=== PATIENT | male | born 1970 | race Caucasian/White ===

== ENCOUNTER 2020-09-29 07:33 | Outpatient (REF) | payer BC, SELFPAY ==
[2020-09-29 10:20] LABS: MANUAL DIFF FLAG NO
[2020-09-29 10:24] LABS: Basophils Percent Auto 0.4 % (0-2); Eosinophils Absolute Auto 0.1 X10*3/uL (0.0-0.4); Eosinophils Percent Auto 2.8 % (0-4); Hemoglobin 15.4 g/dl (14.0-18.0); Imm Gran Abs Auto 0.01 X10*3/uL (0.00-0.03); Imm Gran Pct Auto 0.2 % (0.0-0.4); Lymphocytes Absolute Auto 1.6 X10*3/uL (1.2-4.9); Lymphocytes Percent Auto 32.6 % (20-40); Mean Corpuscular HGB Conc 34.2 g/dl (31.0-36.0); Mean Corpuscular Hemoglobin 29.3 pg (27.0-33.0); Mean Corpuscular Volume 85.7 fL (80-98); Mean Platelet Volume 9.2 fL (9.4-12.4); Monocytes Absolute Auto 0.5 X10*3/uL (0.1-1.2); Monocytes Percent Auto 9.5 % (2-11); Neutrophils Absolute Auto 2.7 X10*3/uL (2.0-8.3); Neutrophils Percent Auto 54.5 % (45-73); Platelet Count 265 X10*3/uL (160-400); Red Blood Count 5.25 X10*6/uL (4.60-5.80); Red Cell Distribution Width 12.8 % (11.0-16.0)
[2020-09-29 10:52] LABS: Alanine Aminotransferase 28 U/L (0-40); Albumin Level 4.6 g/dL (3.5-5.0); Alkaline Phosphatase 88 U/L (39-117); Anion Gap 11 (12-20); Aspartate Amino Transferase 21 U/L (5-37); Bilirubin Total 0.6 mg/dL (0.0-1.0); Blood Urea Nitrogen 26 mg/dL (9-16); C Reactive Protein 0.17 mg/dL (< or = 0.50); Calcium 9.5 mg/dL (8.4-10.2); Carbon Dioxide 29 mmol/L (22-29); Chloride 105 mmol/L (96-108); Cholesterol 218 mg/dL; Estimated Glomerular Filt Rate > 60; Glucose Fasting 98 mg/dL (60-99); HDL Cholesterol 49 mg/dL; LDL Cholesterol Calculated 148 mg/dl; Potassium 4.5 mmol/L (3.3-5.1); Sodium 140 mmol/L (135-145); Total Protein 7.1 g/dL (6.5-8.0); Triglycerides 107 mg/dL
== END 2020-09-29 07:34 | disposition home or self-care (01) ==
LOC: HO.10HDL 07:33
PROVIDERS: Visit Provider Internal Medicine
DX: Z00.00 Encounter for general adult medical examination without abnormal findings (principal); H93.19 Tinnitus, unspecified ear
CPT/HCPCS: 36415; 80053; 80061; 85025; 86140

== ENCOUNTER 2020-10-06 08:30 | Outpatient (REF) | payer BC, SELFPAY ==
--- NOTE | 2020-10-06 12:54 | MHC.AU.ANR ---
Adult Audiological Evaluation Date of Visit: 10/06/20 Reason for Appointment: Audiological evaluation due to concern for decreased hearing and tinnitus. Mr. Rockwell states that he began experiencing intermittent tinnitus about 4-6 weeks ago, and since that time it has become constant. He believes the ringing is worse in his left ear. He notes that he's noticed a gradual decrease in his hearing over the past two years and finds himself asking for repetition more frequently, but feels he hears well most of the time. Mr. Rockwell reports that he constantly feels like he needs to pop his ears and has a long history of sinus problems and allergies. Mr. Rockwell notes that he received the second dose of his COVID-19 vaccine on August 04, 2020, which is around the time he started to notice the ringing. Does patient feel they have a hearing loss?: Unsure Has hearing been tested previously?: No Hearing Handicap Inventory: HHIE SCORE: 2 Based on HHIE score, patient has: No perceived hearing handicap Ear History: Family History of Hearing Loss?: Yes: Mother Bothersome Tinnitus/Ringing/Noises in Ears: Both Ears Blocked/Full Sensation in Ear(s): Both Ears History of occupational noise exposure?: Yes: Briefly worked in a factory setting years ago Medical History: Medical History: Headache, Tobacco Use Medical History (Other): Previously used tobacco but quit 20 years ago. Vasectomy 2003, left shoulder surgery 2007, meniscus surgery 2016, appendectomy 1989, Bleb (lung) resection 2001 Allergies: Morphine Medication List: Cetirizine hydrochloride tablets 10 mg, taken seasonally. Otoscopy: Right Ear: Unremarkable Left Ear: Unremarkable Tympanometry: Tympanometry performed due to: Patient reports clicking/popping sensations in ears Right Ear: Normal Middle Ear System (Type A) Left Ear: Reduced Middle Ear Compliance (Type As) Hearing Evaluation: Transducer(s) Used: Insert Earphones, Bone Conduction Method: Conventional Audiometry Stimuli Used: Pure Tones Right Ear: Description of Hearing: Normal hearing from 250-8000 Hz. Left Ear: Description of Hearing: Normal hearing from 250-3000 Hz, sloping to a mild conductive hearing loss at 4000 Hz, rising to normal hearing at 6000 Hz, and sloping to a mild hearing loss at 8000 Hz. Left ear air-conduction thresholds are 10-20 dBHL worse than the right ear from 6272-3958 Hz and 8000 Hz. Air-bone gaps of 10-20 dBHL are present at 250, 1000, 3000, and 4000 Hz. Speech Recognition Threshold (SRT): Method Used: Monitored Live Voice Stimuli Used: Spondee Words Right Ear: 5 dBHL Left Ear: 10 dBHL Word Discrimination: Method: Recorded Lists Word Lists Used: NU-6 Right Ear: 100% at 45 dBHL Left Ear: 92% at 50 dBHL Recommendations: Audiological re-evaluation in one year. Referral to Ear, Nose, and Throat is recommended to address middle-ear dysfunction, asymmetry, conductive hearing loss, and sudden onset of tinnitus. Discussed exacerbating factors of tinnitus and management techniques. Diagnosis: Primary Diagnosis: H90.12 ConductiveHL, Unilateral Left Ear, W/Unrestricted Contralateral Secondary Diagnosis: H93.13 Tinnitus, Bilateral Services Performed: Services Performed: Comprehensive Audiological Evaluation (CPT 07379) Tympanometry (CPT 12890) Signature: Provider: Melvin Fritz, CCC-A
== END 2020-10-06 08:31 | disposition home or self-care (01) ==
LOC: HO.SH 08:30
PROVIDERS: Visit Provider Internal Medicine
DX: H90.12 Conductive hearing loss, unilateral, left ear, with unrestricted hearing on the contralateral side (principal); H93.13 Tinnitus, bilateral
CPT/HCPCS: 92557; 92567

== ENCOUNTER 2021-10-01 06:13 | Outpatient (REF) | payer BC, SELFPAY ==
[2021-10-01 06:26] LABS: MANUAL DIFF FLAG NO
[2021-10-01 07:33] LABS: Basophils Percent Auto 0.5 % (0-2); Eosinophils Absolute Auto 0.1 X10*3/uL (0.0-0.4); Eosinophils Percent Auto 2.1 % (0-4); Hematocrit 46.5 % (42.0-52.0); Hemoglobin 15.9 g/dl (14.0-18.0); Imm Gran Abs Auto 0.02 X10*3/uL (0.00-0.03); Imm Gran Pct Auto 0.3 % (0.0-0.4); Lymphocytes Absolute Auto 1.8 X10*3/uL (1.2-4.9); Lymphocytes Percent Auto 29.8 % (20-40); Mean Corpuscular HGB Conc 34.2 g/dl (31.0-36.0); Mean Corpuscular Hemoglobin 28.9 pg (27.0-33.0); Mean Corpuscular Volume 84.5 fL (80.0-98.0); Mean Platelet Volume 9.1 fL (9.4-12.4); Monocytes Absolute Auto 0.7 X10*3/uL (0.1-1.2); Monocytes Percent Auto 11.2 % (2-11); Neutrophils Absolute Auto 3.4 x10*3/uL (2.0-8.3); Neutrophils Percent Auto 56.1 % (45-73); Platelet Count 252 X10*3/uL (160-400); Red Cell Distribution Width 12.5 % (11.0-16.0); White Blood Count 6.1 X10*3/uL (4.8-10.8)
[2021-10-01 08:08] LABS: Alanine Aminotransferase 30 U/L (0-40); Albumin Level 4.6 g/dL (3.5-5.0); Alkaline Phosphatase 95 U/L (39-117); Anion Gap 12 (12-20); Aspartate Amino Transferase 24 U/L (5-37); Bilirubin Total 0.6 mg/dL (0.0-1.0); Blood Urea Nitrogen 19 mg/dL (9-16); Calcium 9.5 mg/dL (8.4-10.2); Carbon Dioxide 27 mmol/L (22-29); Chloride 104 mmol/L (96-108); Cholesterol 193 mg/dL; Estimated Glomerular Filt Rate > 60; Glucose Fasting 103 mg/dL (60-99); HDL Cholesterol 42 mg/dL; LDL Cholesterol Calculated 128 mg/dl; Potassium 4.4 mmol/L (3.3-5.1); Sodium 139 mmol/L (135-145); Total Protein 7.2 g/dL (6.5-8.0); Triglycerides 116 mg/dL
[2021-10-01 08:31] LABS: Prostate Specific Antigen 0.45 ng/mL (<0.05-4.0)
== END 2021-10-01 06:14 | disposition home or self-care (01) ==
LOC: HO.LAB 06:13
PROVIDERS: PCP Internal Medicine; Visit Provider Internal Medicine
DX: Z00.00 Encounter for general adult medical examination without abnormal findings (principal); Z12.5 Encounter for screening for malignant neoplasm of prostate
CPT/HCPCS: 36415; 80053; 80061; 84153; 85025

== ENCOUNTER 2022-04-08 09:33 | Day surgery (SDC) | payer BC, SELFPAY ==
--- NOTE | 2022-04-07 11:52 | HO.ANESPROP2 ---
Documented by User: Celine Estrada NP 04/07/22 11:54 HPI - Anesthesia Eval Consult details Narrative: 51yo M for Colonoscopy [facility] Past Medical History Medical History GERD (gastroesophageal reflux disease) Pneumothorax Surgical History Surgical History H/O vasectomy History of lung surgery S/P appendectomy S/P right knee arthroscopy Social History Social History Patient Tobacco Use Status: Former Tobacco user Quit Date: 22 years ago Use of substances other than those prescribed or required for medical reasons: No Are you DNR?: No Advance Directives: No Advance Directives Information Provided: Yes Meds Allergies Allergy/AdvReac Type Severity Reaction Status Date / Time cephalexin [From Keflex] Allergy Hives Verified 04/08/22 10:02 morphine Allergy Hives Verified 04/08/22 10:01 Exam Exam Date and Time: April 07, 2022 1152 Pertinent Lab Results Pertinent Lab Results: Laboratory Tests 10/01/21 10/01/21 06:24 06:24 WBC 6.1 Hgb 15.9 Hct 46.5 Plt Count 252 Sodium 139 Potassium 4.4 Chloride 104 Carbon Dioxide 27 BUN 19 H Creatinine 1.26 Assessment and Plan Assessment Anesthesia Assessment: Chart Reviewed Documented by User: Brando Avina MD 04/08/22 10:30 [facility] Past Medical History Medical History GERD (gastroesophageal reflux disease) Pneumothorax Family History Family history of problems with anesthesia: No Surgical History Surgical History H/O vasectomy History of lung surgery S/P appendectomy S/P right knee arthroscopy History of Problems with Anesthesia: No Social History Social History Patient Tobacco Use Status: Former Tobacco user Quit Date: 22 years ago Use of substances other than those prescribed or required for medical reasons: No Are you DNR?: No Advance Directives: No Advance Directives Information Provided: Yes Meds Allergies Allergy/AdvReac Type Severity Reaction Status Date / Time cephalexin [From Keflex] Allergy Hives Verified 04/08/22 10:02 morphine Allergy Hives Verified 04/08/22 10:01 Exam Airway Mallampati Class: II TM Dist: >3cm Neck ROM: Full Loose/Missing/Broken Teeth: No Heart: [id number] Lungs: cta b/l Assessment and Plan Assessment Anesthesia Assessment: Anesthesia Plan Discussed Final Anesthetic Review Family History of Problems with Anesthesia: No History of Problems with Anesthesia: No NPO: Yes ASA Class: II Final Preanesthetic Review: No Changes in Pt Med Stat, Meds/Allgs Chart Reviewed, Consent Obtained/Reviewed and Anes Risks/Benef Reviewed Patient Risk: Intermediate Procedure Risk: Intermediate Assessment/Block/Sedation in SS: Assess/Block/Sedation-SS Anesthetic Plan Anesthetic Plan: MAC: and Agree w/ Assess. and Plan Disposition: Standard PACU
[2022-04-08 09:49] VITALS: BP 135/93; PULSE 74; RESP 18; TEMP 36.3; O2SAT 99
[2022-04-08] MEDS: Lactated Ringers 1,000 ML 100 ML IVCONT (10:18)
[2022-04-08 11:18] VITALS: BP 103/51; PULSE 82; RESP 16; TEMP 36.4; O2SAT 98
--- NOTE | 2022-04-08 11:25 | PM.OP ---
Brief Operative Note Date of Service: 04/08/22 Pre-op diagnosis: Screening Post-op diagnosis: other (Diverticulosis) Procedure: Colonoscopy to the cecum and TI Surgeon: Antonio Orozco Anesthesia: MAC Was an Transmission Maintenance Supervisor used for this Procedure?: No Estimated blood loss (mL): 0 Pathology: none sent Condition: stable Disposition: PACU
[2022-04-08 11:33] VITALS: BP 124/83; PULSE 71; RESP 18; TEMP 36.7; O2SAT 99
--- NOTE | 2022-04-08 13:11 | OP_ITS ---
SURGEON: Antonio Orozco MD INDICATIONS: The patient presents for evaluation of colorectal cancer screening. Full consent has been obtained from him for this, including risks of bleeding and perforation. PREOPERATIVE DIAGNOSIS: Colorectal cancer screening. POSTOPERATIVE DIAGNOSIS: PROCEDURE PERFORMED: Colonoscopy to the cecum and terminal ileum. ESTIMATED BLOOD LOSS: COMPLICATIONS: ANESTHESIA: Monitored anesthesia care. ASSISTANTS: SPECIMENS: POSTOPERATIVE DIAGNOSES: Colorectal cancer screening, occasional sigmoid diverticulosis, internal hemorrhoids. DESCRIPTION OF PROCEDURE: The patient was placed in the left lateral decubitus position. The digital rectal exam revealed no abnormalities. The Olympus video pediatric colonoscope was entered into the rectum and advanced easily to the cecum. Once in the cecum I did identify a normal-appearing cecal pouch with appendiceal orifice and a normal-appearing ileocecal valve. The terminal ileum was cannulated and appeared normal. The scope was withdrawn back in the colon. The entire cecum and ileocecal valve appeared normal. The scope was slowly withdrawn assessing all mucosal surfaces carefully. Preparation was excellent. I did not visualize any sign of polyps, colitis, nor angiodysplasia. There were occasional diverticula noted in the sigmoid colon. In the rectum, scope was retroflexed visualizing internal hemorrhoids, but no other pathology. The rectal mucosa appeared normal. Scope was straightened and withdrawn from the patient. He tolerated the procedure well and was returned to the recovery area in stable condition. IMPRESSION: 1. Sigmoid diverticulosis. 2. Internal hemorrhoids. PLAN: Given today's negative exam and no family history of colon cancer, I would recommend a followup colonoscopy in 10 years for further screening. He will otherwise see me on a p.r.n. basis. Antonio Orozco MD RMDejuan/GITAL / [id number] MTDD
== END 2022-04-08 12:07 | disposition home or self-care (01) ==
PROVIDERS: PCP Internal Medicine; Visit Provider Internal Medicine
PROC: 0DJD8ZZ Inspection of Lower Intestinal Tract, Via Natural or Artificial Opening Endoscopic (ICD-10-PCS; CPT 45378; principal; 2022-04-08 10:30)
DX: Z12.11 Encounter for screening for malignant neoplasm of colon (principal); K57.30 Diverticulosis of large intestine without perforation or abscess without bleeding; K64.8 Other hemorrhoids; K21.9 Gastro-esophageal reflux disease without esophagitis; Z79.899 Other long term (current) drug therapy; Z88.1 Allergy status to other antibiotic agents; Z88.2 Allergy status to sulfonamides; Z88.8 Allergy status to other drugs, medicaments and biological substances; Z98.890 Other specified postprocedural states; Z87.891 Personal history of nicotine dependence
CPT/HCPCS: 45378

== ENCOUNTER 2023-03-10 08:30 | Outpatient (REF) | payer BC, SELFPAY ==
--- NOTE | ~2023-03-10 | XR_ITS ---
EXAMINATION: XR LUMBOSACRAL SPINE CLINICAL INFORMATION: Lumbar pain COMPARISON: None available. TECHNIQUE: Three views of the lumbosacral spine. FINDINGS: Mild multilevel lumbar spondylosis with mild hypertrophic change. Lumbar disc space heights are essentially preserved. Mild atherosclerotic aortic calcifications. Facet arthritis in the lower lumbar spine. XR/XR lumbar spine 2-3V IMPRESSION: Mild multilevel lumbar spondylosis. Facet arthritis in the lower lumbar spine.
[2023-03-10 08:41] LABS: MANUAL DIFF FLAG NO
[2023-03-10 09:28] LABS: Basophils Percent Auto 0.7 % (0-2); Eosinophils Absolute Auto 0.2 X10*3/uL (0.0-0.4); Eosinophils Percent Auto 3.1 % (0-4); Hematocrit 48.8 % (42.0-52.0); Hemoglobin 16.6 g/dl (14.0-18.0); Imm Gran Abs Auto 0.02 X10*3/uL (0.00-0.03); Imm Gran Pct Auto 0.3 % (0.0-0.4); Lymphocytes Absolute Auto 1.5 X10*3/uL (1.2-4.9); Mean Corpuscular Hemoglobin 29.1 pg (27.0-33.0); Mean Corpuscular Volume 85.5 fL (80.0-98.0); Mean Platelet Volume 9.2 fL (9.4-12.4); Monocytes Absolute Auto 0.7 X10*3/uL (0.1-1.2); Monocytes Percent Auto 11.5 % (2-11); Neutrophils Absolute Auto 3.4 x10*3/uL (2.0-8.3); Neutrophils Percent Auto 58.4 % (45-73); Platelet Count 255 X10*3/uL (160-400); Red Blood Count 5.71 X10*6/uL (4.60-5.80); Red Cell Distribution Width 12.1 % (11.0-16.0); White Blood Count 5.9 X10*3/uL (4.8-10.8)
[2023-03-10 10:31] LABS: Alanine Aminotransferase 41 U/L (0-40); Albumin Level 4.9 g/dL (3.5-5.0); Alkaline Phosphatase 81 U/L (39-117); Anion Gap 15 (12-20); Aspartate Amino Transferase 27 U/L (5-37); Bilirubin Total 0.9 mg/dL (0.0-1.0); Blood Urea Nitrogen 18 mg/dL (9-16); Calcium 9.9 mg/dL (8.4-10.2); Carbon Dioxide 26 mmol/L (22-29); Chloride 106 mmol/L (96-108); Cholesterol 197 mg/dL (<200); Estimated Glomerular Filt Rate > 60; Glucose Fasting 95 mg/dL (60-99); HDL Cholesterol 49 mg/dL (>40); LDL Cholesterol Calculated 123 mg/dL (<100); Potassium 4.6 mmol/L (3.3-5.1); Sodium 142 mmol/L (135-145); Total Protein 7.8 g/dL (6.5-8.0); Triglycerides 125 mg/dL (<150)
[2023-03-10 10:37] LABS: Prostate Specific Antigen Scr 0.23 ng/mL (<0.05-4.0)
== END 2023-03-10 08:31 | disposition home or self-care (01) ==
LOC: HO.XRAY 08:30
PROVIDERS: PCP Internal Medicine; Visit Provider Internal Medicine
DX: K57.90 Diverticulosis of intestine, part unspecified, without perforation or abscess without bleeding (principal); E78.00 Pure hypercholesterolemia, unspecified; K21.9 Gastro-esophageal reflux disease without esophagitis; R35.1 Nocturia; Z12.5 Encounter for screening for malignant neoplasm of prostate
CPT/HCPCS: 36415; 72100; 80053; 80061; 84153; 85025